=== PATIENT | male | born 1955 | race Caucasian/White ===

== ENCOUNTER 2021-02-22 10:23 | Inpatient (IN) | payer OTHER ==
[2021-02-22 11:12] VITALS: BMI 28.5
[2021-02-22] MEDS ORDERED: LACTATED RINGERS SOLUTION 1000 ML INFUS.BAG IV ONE (12:52)
[2021-02-22] MEDS ORDERED: ACETAMINOPHEN 325 MG TABLET (FP) PO ONE (12:52)
[2021-02-22] MEDS ORDERED: guaiFENesin 200 MG/10 ML 10 ML UNIT-DOSE CUPS PO ONE (13:04)
[2021-02-22] MEDS ORDERED: ACETAMINOPHEN 325 MG TABLET (FP) ONE (13:14)
[2021-02-22] MEDS ORDERED: guaiFENesin/D-METHORPHAN HB 10 ML UNIT-DOSE CUPS ONE (13:14)
[2021-02-22 13:24] LABS: HEMATOCRIT 42.8 % (35.4-49); HEMOGLOBIN 14.7 GM/dL (11.7-16.9); MCH 32.8 pg (25.7-33.7); MCHC 34.3 g/dl (32.0-35.9); MEAN CELL VOLUME 95.6 fl (80-96); MEAN PLT VOLUME 8.9 fl (7.5-11.1); PLATELET COUNT 377 10^3/uL (134-434); RBC 4.48 M/mm3 (4.00-5.60); RDW 13.8 % (11.9-15.9); WHITE BLOOD COUNT 20.2 K/mm3 (4.0-10.0)
[2021-02-22 13:31] LABS: INR 1.41 (0.83-1.09); PROTHROMBIN TIME (PATIENT) 16.9 SEC (9.7-13.0)
[2021-02-22 13:34] LABS: ACTIVATED PTT 29.7 SECONDS (25.2-36.5)
[2021-02-22 13:49] LABS: CHLORIDE 95 mmol/L (98-107); SODIUM 133 mmol/L (136-145)
[2021-02-22 13:51] LABS: ALBUMIN 2.1 g/dl (3.4-5.0); ANION GAP 20 MMOL/L (8-16); BLOOD UREA NITROGEN 37.7 mg/dL (7-18); CALCIUM 9.4 mg/dL (8.5-10.1); CO2 18 mmol/L (21-32)
[2021-02-22 13:53] LABS: SGOT/AST 40 U/L (15-37); SGPT/ALT 65 U/L (13-61)
[2021-02-22 13:55] LABS: CREATININE 1.4 mg/dL (0.55-1.3)
[2021-02-22 13:56] LABS: TOT PROT 6.6 g/dl (6.4-8.2)
[2021-02-22 13:57] LABS: ALK PHOS 270 U/L (45-117)
[2021-02-22 13:59] LABS: BILIRUBIN,TOTAL 0.8 mg/dL (0.2-1); GLUCOSE,RANDOM 403 mg/dL (74-106); N-TERMINAL BNP 305.8 pg/ml (5-125)
[2021-02-22 14:26] LABS: ANISOCYTOSIS 0; HELMET CELLS 0; HOWELL-JOLLY BODIES 0; MACROCYTOSIS 0; OVALOCYTE 0; PLATELET ESTIMATE NORMAL; ROULEAU 0; SICKELED CELLS 0; TARGET CELLS 0; TEAR DROP CELLS 0; TOXIC GRANULATION 0
[2021-02-22] MEDS ORDERED: POTASSIUM CHLORIDE TABS 20 MEQ TABLET.ER (FP) PO ONE ×2 (14:31→15:13)
[2021-02-22] MEDS ORDERED: AZITHROMYCIN IVPB 500 MG in DEXTROSE 5%-WATER - 250 ML IVPB ONE (14:58)
[2021-02-22] MEDS ORDERED: CEFTRIAXONE 1,000 MG in DEXTROSE 5%-WATER - 50 ML IVPB ONE (14:58)
[2021-02-22] MEDS ORDERED: INSULIN REGULAR HUMAN 100 UNITS/ML *VIAL IVPUSH ONE (15:01)
[2021-02-22] MEDS ORDERED: SODIUM CHLORIDE 0.9% 500 ML INFUS.BAG IV ONE (15:01)
[2021-02-22] MEDS ORDERED: AZITHROMYCIN IVPB ONE (15:02)
[2021-02-22] MEDS ORDERED: CEFTRIAXONE 1 GM in SODIUM CHLORIDE 50 ML IVPB ONE (15:02)
[2021-02-22] MEDS ORDERED: SODIUM CHLORIDE IVPB ONE (15:02)
[2021-02-22] MEDS ORDERED: AZITHROMYCIN IVPB 500 MG in SODIUM CHLORIDE 250 ML IVPB ONE (15:03)
[2021-02-22] MEDS ORDERED: CEFTRIAXONE 1 GM/50 ML BAG ONE (15:13)
[2021-02-22] MEDS ORDERED: AZITHROMYCIN IVPB 500 MG/250 ML BAG IVPB ONE (15:13)
[2021-02-22] MEDS ORDERED: SODIUM CHLORIDE 0.9%/KCL 20 MEQ/1,000 ML INFUS.BAG IV SCH (15:15)
[2021-02-22] MEDS ORDERED: INSULIN REGULAR HUMAN 100 UNITS/ML *VIAL ONE (15:15)
[2021-02-22] MEDS ORDERED: INSULIN REGULAR 100 UNITS in SODIUM CHLORIDE 99 ML IVPB SCH (15:30)
[2021-02-22 16:05] LABS: VENOUS BASE EXCESS -6.4 mmol/L (-2-2); VENOUS O2 SATURATION 80.7 % (70-80); VENOUS PCO2 34.1 mmHg (38-52); VENOUS PH 7.348 (7.310-7.410)
[2021-02-22 16:20] LABS: CHLORIDE 93 mmol/L (98-107); SODIUM 130 mmol/L (136-145)
[2021-02-22 16:22] LABS: ANION GAP 17 MMOL/L (8-16); BLOOD UREA NITROGEN 35.8 mg/dL (7-18); CO2 20 mmol/L (21-32)
[2021-02-22 16:23] LABS: EPI CELLS 28 /uL (0-25.1); HYALINE CASTS 14 /uL (0-3.1); URINE APPEARANCE CLEAR; URINE BACTERIA 6 /uL (0-1359); URINE BILIRUBIN 1+ (NEGATIVE); URINE COLOR DK YELLOW; URINE GLUCOSE (UA) 3+ (NEGATIVE); URINE KETONE 3+ (NEGATIVE); URINE LEUK ESTERASE NEGATIVE (NEGATIVE); URINE NITRITE NEGATIVE (NEGATIVE); URINE PROTEIN 2+ (NEGATIVE); URINE RBC 24 /uL (0-23.9); URINE WBC 29 /uL (0-25.8)
[2021-02-22 16:25] LABS: CREATININE 1.4 mg/dL (0.55-1.3)
[2021-02-22 16:28] LABS: GLUCOSE,RANDOM 405 mg/dL (74-106); LACTIC ACID 2.7 mmol/L (0.4-2.0)
[2021-02-22 20:43] LABS: BLOOD UREA NITROGEN 34.9 mg/dL (7-18); CALCIUM 9.1 mg/dL (8.5-10.1)
[2021-02-22 20:46] LABS: CREATININE 1.1 mg/dL (0.55-1.3)
[2021-02-22 20:53] LABS: LACTIC ACID 2.6 mmol/L (0.4-2.0)
[2021-02-22] MEDS ORDERED: CHLORHEXIDINE GLUCONATE 4% CLEANSER FOR DECOLONIZATION TP SCH (22:00)
[2021-02-22] MEDS ORDERED: MUPIROCIN 2% TOPICAL OINTMENT FOR DECOLONIZATION NS SCH (22:00)
[2021-02-22 23:43] LABS: CALCIUM 8.5 mg/dL (8.5-10.1)
[2021-02-22 23:44] LABS: BLOOD UREA NITROGEN 31.6 mg/dL (7-18)
[2021-02-22 23:47] LABS: CREATININE 0.9 mg/dL (0.55-1.3)
[2021-02-23] MEDS ORDERED: INSULIN (LEVEMIR) 100 UNITS/ML UNITS SQ ONE (00:10)
[2021-02-23] MEDS ORDERED: D5-1/2NS+20 MEQ KCL - 20 MEQ/1,000 ML INFUS.BAG IV SCH ×2 (00:15→00:19)
[2021-02-23 00:31] LABS: LACTIC ACID 2.3 mmol/L (0.4-2.0)
[2021-02-23] MEDS: HEPARIN NA (PORCINE) 5,000 UNITS/ML 1ML VIAL SQ SCH ×2 (00:32→06:05)
[2021-02-23 00:38] LABS: ARTERIAL BLD GAS O2 SATURATION 94.1 % (95-98); ARTERIAL BLOOD GAS BASE EXCESS 0.4 mmol/L (-2-2); ARTERIAL BLOOD GAS PO2 67.1 mmHg (80-100); ARTERIAL BLOOD GAS pH 7.441 (7.350-7.450)
[2021-02-23 01:32] VITALS: TEMP 99.7
[2021-02-23 01:33] VITALS: BP 149/73; PULSE 110
[2021-02-23] MEDS ORDERED: VANCOMYCIN/WATER 1,250 MG/250 ML BAG IVPB ONE (02:15)
[2021-02-23] MEDS ORDERED: VANCOMYCIN/WATER BAGS 1,250 MG/250 ML BAG IVPB ONE (02:30)
[2021-02-23] MEDS ORDERED: INSULIN SLIDING SCALE (NOVOLOG) 1 VIAL SQ SCH (07:00)
[2021-02-23] MEDS ORDERED: AZITHROMYCIN IVPB 500 MG/250 ML BAG IVPB SCH (10:00)
[2021-02-23] MEDS ORDERED: CEFTRIAXONE 1 GM in DEXTROSE 5%-WATER - 50 ML IVPB SCH (10:00)
== END 2021-02-23 07:00 | disposition left against medical advice (07) | DRG 871 ==
LOC: JER 10:23 → JERBED 15:02 → JICU 21:10
PROVIDERS: ADMIT Family Medicine; ATTEND Family Medicine
DX: A41.89 Other specified sepsis (principal); J18.9 Pneumonia, unspecified organism; E11.10 Type 2 diabetes mellitus with ketoacidosis without coma; J96.01 Acute respiratory failure with hypoxia; J90 Pleural effusion, not elsewhere classified; N17.9 Acute kidney failure, unspecified; I10 Essential (primary) hypertension; E78.5 Hyperlipidemia, unspecified; E11.65 Type 2 diabetes mellitus with hyperglycemia; R00.0 Tachycardia, unspecified; Z91.14 Patient's other noncompliance with medication regimen
CPT/HCPCS: 36415; 36600; 71046-TC-FY; 71275-TC; 80048; 80053; 81003; 82010; 82550; 82803; 82962; 83605; 83880; 84484; 85025; 85379; 85610; 85730; 87040; 87086; 87186; 87899; 93005; 93010; 99285-25; C9803; J1644; U0003; U0005

== ENCOUNTER 2021-02-28 12:32 | Inpatient (IN) | payer OTHER ==
[2021-02-28 12:41] VITALS: BMI 27.1
[2021-02-28] MEDS ORDERED: SODIUM CHLORIDE 0.9% 1000 ML INFUS.BAG IV ONE ×2 (12:44→14:06)
[2021-02-28 13:33] LABS: ACTIVATED PTT 24.7 SECONDS (25.2-36.5)
[2021-02-28 13:36] LABS: ALBUMIN 1.8 g/dl (3.4-5.0); BILIRUBIN,TOTAL 1.6 mg/dl (0.2-1); CALCIUM 8.2 mg/dl (8.5-10); CREATININE 1.1 mg/dl (0.55-1.3); TOT PROT 6.2 g/dl (6.4-8.2)
[2021-02-28 13:42] LABS: INR 1.44 (0.82-1.09); PROTHROMBIN TIME (PATIENT) 15.7 SEC (10.2-13.0)
[2021-02-28] MEDS ORDERED: VANCOMYCIN 1 GM in D5W (PRE-DOCKED) 1,000 MG/250 ML IVPB ONE (13:45)
[2021-02-28] MEDS ORDERED: PIPERACILLIN/TAZOB 3.375 GM 3.375 GM in DEXTROSE 5%-WATER - 50 ML IVPB ONE (13:49)
[2021-02-28] MEDS ORDERED: PIPERACILLIN/TAZOBACTAM 3.375 GM VIAL IVPB ONE ×2 (13:54→21:23)
[2021-02-28] MEDS ORDERED: VANCOMYCIN 1,000 MG VIAL (RESTRICTED TO ID ONLY) ONE (13:54)
[2021-02-28] MEDS ORDERED: INSULIN REGULAR HUMAN 100 UNITS/ML *VIAL IVPUSH ONE (14:02)
[2021-02-28 14:04] LABS: HEMATOCRIT 43.5 % (35.4-49); HEMOGLOBIN 14.3 GM/dl (11.7-16.9); MCHC 32.9 g/dl (32.0-35.9); MEAN CELL VOLUME 97.4 fl (80-96); MEAN PLT VOLUME 8.5 fl (7.5-11.1); PLATELET COUNT 663 10^3/uL (134-434); RBC 4.47 M/mm3 (4.00-5.60); RDW 13.7 % (11.9-15.9)
[2021-02-28 14:06] LABS: WHITE BLOOD COUNT 23.6 K/mm3 (4.0-10.8)
[2021-02-28] MEDS ORDERED: INSULIN REGULAR HUMAN 100 UNITS/ML *VIAL ONE (14:08)
[2021-02-28] MEDS ORDERED: dilTIAZem HCL 50 MG/10 ML - 10 ML VIAL IVPUSH ONE ×3 (14:18→19:53)
[2021-02-28] MEDS ORDERED: dilTIAZem HCL 125 MG/25 ML - 25 ML VIAL ONE ×2 (14:18→15:02)
[2021-02-28 14:54] LABS: VENOUS BASE EXCESS -17.9 mmol/L (-2-2); VENOUS O2 SATURATION 75.3 % (70-80); VENOUS PCO2 24.9 mmHg (38-52)
[2021-02-28 14:58] LABS: VENOUS PH 7.168 (7.310-7.410)
[2021-02-28 15:05] LABS: PLATELET ESTIMATE INCREASED
[2021-02-28 15:14] LABS: EPITHELIAL CELLS FEW /hpf; URINE MUCUS 1+
[2021-02-28 15:35] LABS: LACTIC ACID 3.6 mmol/L (0.4-2.0)
[2021-02-28] MEDS ORDERED: SODIUM CHLORIDE 0.9% 500 ML INFUS.BAG IV ONE (15:48)
[2021-02-28 15:53] LABS: CREATININE 1.1 mg/dl (0.55-1.3)
[2021-02-28] MEDS ORDERED: DEXTROSE 50%-WATER - 25 GM/50 ML VIAL IVPUSH PRN (16:53)
[2021-02-28] MEDS ORDERED: INSULIN REGULAR 100 UNITS in SODIUM CHLORIDE 99 ML IVPB SCH (17:00)
[2021-02-28] MEDS ORDERED: dilTIAZem HCL 50 MG/10 ML - 10 ML VIAL IVPUSH PRN ×3 (17:53→19:59)
[2021-02-28] MEDS ORDERED: PIPERACILLIN/TAZOB 3.375 GM 3.375 GM in DEXTROSE 5%-WATER - 50 ML IVPB SCH (18:00)
[2021-02-28 18:10] LABS: ARTERIAL BLD GAS O2 SATURATION 96.1 % (95-98); ARTERIAL BLOOD GAS BASE EXCESS -17.1 mmol/L (-2-2); ARTERIAL BLOOD GAS PO2 93.8 mmHg (80-100); ARTERIAL BLOOD GAS pH 7.233 (7.350-7.450)
[2021-02-28 18:11] LABS: ALLENS TEST POSITIVE
[2021-02-28 19:45] LABS: CALCIUM 7.7 mg/dL (8.5-10.1)
[2021-02-28 19:46] LABS: BLOOD UREA NITROGEN 22.5 mg/dL (7-18)
[2021-02-28 19:49] LABS: CREATININE 0.9 mg/dL (0.55-1.3)
[2021-02-28] MEDS ORDERED: D5-1/2NS+20 MEQ KCL - 20 MEQ/1,000 ML INFUS.BAG IV SCH (20:45)
[2021-02-28] MEDS ORDERED: DEXTROSE 5%-0.45% SALINE 1,000 ML IV SCH (20:45)
[2021-02-28 21:11] LABS: LACTIC ACID 2.2 mmol/L (0.4-2.0)
[2021-02-28] MEDS ORDERED: DEXTROSE 5%-WATER - 50 ML IVPB ONE (21:24)
[2021-02-28] MEDS: PIPERACILLIN/TAZOB 3.375 GM 3.375 GM in DEXTROSE 5%-WATER - 50 ML IVPB SCH (21:27)
[2021-02-28] MEDS: HEPARIN NA (PORCINE) 5,000 UNITS/ML 1ML VIAL SQ SCH (21:27)
[2021-02-28] MEDS: CHLORHEXIDINE GLUCONATE 4% CLEANSER FOR DECOLONIZATION TP SCH (21:27)
[2021-02-28 22:32] LABS: CALCIUM 7.6 mg/dL (8.5-10.1)
[2021-02-28 22:33] LABS: BLOOD UREA NITROGEN 19.6 mg/dL (7-18)
[2021-02-28 22:36] LABS: CREATININE 0.6 mg/dL (0.55-1.3)
[2021-02-28] MEDS: DILTIAZEM INJECTION 125 MG in SODIUM CHLORIDE 100 ML IVPB SCH (22:53)
[2021-02-28] MEDS: MUPIROCIN 2% TOPICAL OINTMENT FOR DECOLONIZATION NS SCH (23:00)
[2021-03-01] MEDS: INSULIN (LEVEMIR) 100 UNITS/ML UNITS SQ SCH ×2 (00:14→06:19)
[2021-03-01] MEDS ORDERED: SODIUM CHLORIDE 1,000 ML IV SCH (00:15)
[2021-03-01] MEDS ORDERED: dilTIAZem HCL 50 MG/10 ML - 10 ML VIAL IVPUSH ONE ×3 (01:31→02:41)
[2021-03-01] MEDS ORDERED: PIPERACILLIN/TAZOBACTAM 3.375 GM VIAL IVPB ONE ×2 (01:47→09:49)
[2021-03-01] MEDS ORDERED: DEXTROSE 5%-WATER - 50 ML IVPB ONE ×2 (01:47→09:49)
[2021-03-01] MEDS: PIPERACILLIN/TAZOB 3.375 GM 3.375 GM in DEXTROSE 5%-WATER - 50 ML IVPB SCH ×2 (01:49→10:10)
[2021-03-01 02:53] LABS: CALCIUM 7.5 mg/dL (8.5-10.1)
[2021-03-01 02:54] LABS: BLOOD UREA NITROGEN 18.1 mg/dL (7-18)
[2021-03-01 02:57] LABS: CREATININE 0.6 mg/dL (0.55-1.3)
[2021-03-01] MEDS ORDERED: METOPROLOL TARTRATE 5 MG/5 ML VIAL IVPUSH ONE (03:30)
[2021-03-01] MEDS: METOPROLOL TARTRATE 25 MG TABLET (FP) PO SCH ×3 (03:45→22:18)
[2021-03-01] MEDS: HEPARIN NA (PORCINE) 5,000 UNITS/ML 1ML VIAL SQ SCH (06:09)
[2021-03-01] MEDS ORDERED: INSULIN SLIDING SCALE (NOVOLOG) 1 VIAL SQ SCH ×2 (07:00)
[2021-03-01 07:49] LABS: HEMATOCRIT 36.2 % (35.4-49); HEMOGLOBIN 12.2 GM/dL (11.7-16.9); MCH 32.2 pg (25.7-33.7); MCHC 33.8 g/dl (32.0-35.9); MEAN CELL VOLUME 95.2 fl (80-96); MEAN PLT VOLUME 8.3 fl (7.5-11.1); PLATELET COUNT 608 10^3/uL (134-434); RDW 14.2 % (11.9-15.9)
[2021-03-01 08:12] LABS: CALCIUM 7.4 mg/dL (8.5-10.1)
[2021-03-01 08:13] LABS: BLOOD UREA NITROGEN 19.2 mg/dL (7-18); MAGNESIUM 1.7 mg/dL (1.8-2.4)
[2021-03-01 08:15] LABS: CREATININE 0.7 mg/dL (0.55-1.3); PHOSPHOROUS 2.3 mg/dL (2.5-4.9)
[2021-03-01 08:17] LABS: BILIRUBIN,TOTAL 0.6 mg/dL (0.2-1); TOT PROT 5.3 g/dl (6.4-8.2)
[2021-03-01 08:24] LABS: ALBUMIN 1.3 g/dl (3.4-5.0)
[2021-03-01] MEDS ORDERED: VANCOMYCIN/WATER 1,250 MG/250 ML BAG IVPB ONE (10:00)
[2021-03-01] MEDS: MUPIROCIN 2% TOPICAL OINTMENT FOR DECOLONIZATION NS SCH ×2 (10:09→22:18)
[2021-03-01] MEDS: PANTOPRAZOLE SODIUM 40 MG VIAL IVPUSH SCH (10:10)
[2021-03-01 10:14] LABS: ANISOCYTOSIS 1+; MACROCYTOSIS 0; PLATELET ESTIMATE INCREASED
[2021-03-01] MEDS ORDERED: D5-NS + 40 MEQ KCL - 40 MEQ/1,000 ML INFUS.BAG IV SCH ×2 (10:15→17:57)
[2021-03-01] MEDS ORDERED: INSULIN REGULAR 100 UNITS in SODIUM CHLORIDE 99 ML IVPB SCH (10:30)
[2021-03-01] MEDS ORDERED: LIDOCAINE HCL 1%, 10 MG/ML (20ML VIAL) ONE (11:11)
[2021-03-01] MEDS ORDERED: LIDOCAINE HCL 1%, 10 MG/ML (50 mL VIAL) SQ ONE (12:00)
[2021-03-01] MEDS ORDERED: MORPHINE SULFATE 2 MG/ML VIAL IVPUSH ONE (12:23)
[2021-03-01] MEDS ORDERED: MIDAZOLAM HCL 2 MG/2 ML SINGLE DOSE VIAL IVPUSH ONE (12:23)
[2021-03-01] MEDS ORDERED: MORPHINE SULFATE 2 MG/ML VIAL ONE (12:26)
[2021-03-01] MEDS ORDERED: MAGNESIUM SULF 50% (8.12 MEQ/2 ML-1 GM VIAL) IVPB ONE (14:15)
[2021-03-01 14:19] LABS: BF WBC & OTHER NUCLEATED CELLS 85792 /mm3
[2021-03-01 14:48] LABS: BODY FLUID MONOCYTE 10 %
[2021-03-01] MEDS ORDERED: SODIUM PHOSPHATE - 30 MM in SODIUM CHLORIDE 250 ML IVPB ONE (15:15)
[2021-03-01] MEDS ORDERED: PT OWN MED DRAWER 7, Y5N ONE (15:27)
[2021-03-01] MEDS ORDERED: DEXTROSE 5%-WATER 100 ML IVPB ONE (16:07)
[2021-03-01] MEDS: CEFTRIAXONE 2 GM in DEXTROSE 5%-WATER 2 GM/100 ML BAG IVPB SCH (16:11)
[2021-03-01 16:36] LABS: CALCIUM 7.8 mg/dL (8.5-10.1)
[2021-03-01 16:37] LABS: ALBUMIN 1.3 g/dl (3.4-5.0)
[2021-03-01 16:40] LABS: CREATININE 0.6 mg/dL (0.55-1.3)
[2021-03-01 16:42] LABS: BILIRUBIN,TOTAL 0.6 mg/dL (0.2-1); TOT PROT 5.2 g/dl (6.4-8.2)
[2021-03-01] MEDS ORDERED: PIPERACILLIN/TAZOB 3.375 GM 3.375 GM in DEXTROSE 5%-WATER - 50 ML IVPB SCH (18:00)
[2021-03-01 18:10] LABS: CALCIUM 7.6 mg/dL (8.5-10.1)
[2021-03-01 18:14] LABS: CREATININE 0.7 mg/dL (0.55-1.3)
[2021-03-01 21:21] LABS: CALCIUM 7.4 mg/dL (8.5-10.1)
[2021-03-01 21:25] LABS: CREATININE 0.7 mg/dL (0.55-1.3)
[2021-03-01] MEDS: DILTIAZEM INJECTION 125 MG in SODIUM CHLORIDE 100 ML IVPB SCH (21:39)
[2021-03-01] MEDS ORDERED: ENOXAPARIN NA (PORCINE) 100 MG/1 ML DISP.SYRIN SQ SCH (22:00)
[2021-03-01] MEDS: CHLORHEXIDINE GLUCONATE 4% CLEANSER FOR DECOLONIZATION TP SCH (22:18)
[2021-03-02] MEDS ORDERED: DEXTROSE 5%-WATER 100 ML IVPB ONE ×2 (04:15→15:05)
[2021-03-02 04:16] LABS: CALCIUM 7.2 mg/dL (8.5-10.1)
[2021-03-02 04:17] LABS: BLOOD UREA NITROGEN 12.8 mg/dL (7-18)
[2021-03-02] MEDS: CEFTRIAXONE 2 GM in DEXTROSE 5%-WATER 2 GM/100 ML BAG IVPB SCH ×2 (04:17→15:15)
[2021-03-02 04:20] LABS: CREATININE 0.7 mg/dL (0.55-1.3)
[2021-03-02] MEDS ORDERED: SODIUM CHLORIDE 1,000 ML IV SCH (04:30)
[2021-03-02] MEDS ORDERED: INSULIN SLIDING SCALE (NOVOLOG) 1 VIAL SQ SCH (07:00)
[2021-03-02] MEDS ORDERED: INSULIN (LEVEMIR) 100 UNITS/ML UNITS SQ SCH (07:00)
[2021-03-02 07:47] LABS: HEMATOCRIT 33.7 % (35.4-49); HEMOGLOBIN 11.6 GM/dL (11.7-16.9); MCH 32.9 pg (25.7-33.7); MCHC 34.4 g/dl (32.0-35.9); MEAN CELL VOLUME 95.7 fl (80-96); MEAN PLT VOLUME 8.3 fl (7.5-11.1); PLATELET COUNT 623 10^3/uL (134-434); RBC 3.52 M/mm3 (4.00-5.60); WHITE BLOOD COUNT 14.2 K/mm3 (4.0-10.0)
[2021-03-02 08:02] LABS: ALBUMIN 1.2 g/dl (3.4-5.0); CALCIUM 7.1 mg/dL (8.5-10.1)
[2021-03-02 08:03] LABS: BLOOD UREA NITROGEN 11.6 mg/dL (7-18)
[2021-03-02 08:06] LABS: CREATININE 0.7 mg/dL (0.55-1.3); PHOSPHOROUS 2.1 mg/dL (2.5-4.9)
[2021-03-02 08:07] LABS: BILIRUBIN,TOTAL 0.3 mg/dL (0.2-1); TOT PROT 5.2 g/dl (6.4-8.2)
[2021-03-02] MEDS: INSULIN SLIDING SCALE (NOVOLOG) 1 VIAL SQ SCH ×4 (08:13→21:16)
[2021-03-02 09:45] LABS: ANISOCYTOSIS 1+; MACROCYTOSIS 0; OVALOCYTE 1+; PLATELET ESTIMATE INCREASED; SICKELED CELLS 1+; TOXIC GRANULATION 1+
[2021-03-02] MEDS ORDERED: PT OWN MED DRAWER 7, Y5N ONE (10:00)
[2021-03-02] MEDS: MUPIROCIN 2% TOPICAL OINTMENT FOR DECOLONIZATION NS SCH (10:14)
[2021-03-02] MEDS: PANTOPRAZOLE SODIUM 40 MG VIAL IVPUSH SCH (10:15)
[2021-03-02] MEDS: METOPROLOL TARTRATE 25 MG TABLET (FP) PO SCH ×2 (10:16→21:14)
[2021-03-02] MEDS: HEPARIN NA (PORCINE) 5,000 UNITS/ML 1ML VIAL SQ SCH ×2 (14:55→21:13)
[2021-03-02] MEDS ORDERED: DEXTROSE 50%-WATER - 25 GM/50 ML VIAL IVPUSH PRN (19:12)
[2021-03-02] MEDS ORDERED: DILTIAZEM INJECTION 125 MG in SODIUM CHLORIDE 100 ML IVPB SCH (19:12)
[2021-03-02] MEDS ORDERED: dilTIAZem HCL 50 MG/10 ML - 10 ML VIAL IVPUSH PRN (19:12)
[2021-03-02] MEDS: INSULIN (LEVEMIR) 100 UNITS/ML UNITS SQ SCH (21:15)
[2021-03-02] MEDS ORDERED: CHLORHEXIDINE GLUCONATE 4% CLEANSER FOR DECOLONIZATION TP SCH (22:00)
[2021-03-02] MEDS ORDERED: MUPIROCIN 2% TOPICAL OINTMENT FOR DECOLONIZATION NS SCH (22:00)
[2021-03-03] MEDS ORDERED: DEXTROSE 5%-WATER 100 ML IVPB ONE ×2 (04:16→15:37)
[2021-03-03] MEDS: CEFTRIAXONE 2 GM in DEXTROSE 5%-WATER 2 GM/100 ML BAG IVPB SCH ×2 (05:05→15:38)
[2021-03-03] MEDS: HEPARIN NA (PORCINE) 5,000 UNITS/ML 1ML VIAL SQ SCH ×3 (05:09→21:13)
[2021-03-03] MEDS: INSULIN SLIDING SCALE (NOVOLOG) 1 VIAL SQ SCH ×4 (06:06→21:17)
[2021-03-03] MEDS: INSULIN (LEVEMIR) 100 UNITS/ML UNITS SQ SCH ×2 (06:07→21:18)
[2021-03-03] MEDS: PANTOPRAZOLE SODIUM 40 MG VIAL IVPUSH SCH (10:27)
[2021-03-03] MEDS: METOPROLOL TARTRATE 25 MG TABLET (FP) PO SCH ×2 (10:27→21:14)
[2021-03-03] MEDS: guaiFENesin/CODEINE 10 ML UNIT-DOSE CUPS PO PRN ×2 (10:44→21:16)
[2021-03-03] MEDS: ONDANSETRON 4 MG/2 ML VIAL IVPUSH PRN (14:13)
[2021-03-03] MEDS: MELATONIN 1 MG TABLET PO PRN (21:13)
[2021-03-03] MEDS: dilTIAZem HCL 30 MG TABLET PO SCH (21:14)
[2021-03-04] MEDS ORDERED: KETOROLAC TROMETHAMINE 30 MG/1 ML VIAL IVPUSH ONE (00:02)
[2021-03-04] MEDS ORDERED: DEXTROSE 5%-WATER 100 ML IVPB ONE ×2 (05:00→15:05)
[2021-03-04] MEDS: CEFTRIAXONE 2 GM in DEXTROSE 5%-WATER 2 GM/100 ML BAG IVPB SCH ×2 (05:02→15:15)
[2021-03-04] MEDS: guaiFENesin/CODEINE 10 ML UNIT-DOSE CUPS PO PRN (05:02)
[2021-03-04] MEDS: HEPARIN NA (PORCINE) 5,000 UNITS/ML 1ML VIAL SQ SCH ×3 (05:02→20:59)
[2021-03-04] MEDS: dilTIAZem HCL 30 MG TABLET PO SCH ×3 (05:04→21:00)
[2021-03-04] MEDS: INSULIN SLIDING SCALE (NOVOLOG) 1 VIAL SQ SCH ×4 (06:10→21:05)
[2021-03-04] MEDS: INSULIN (LEVEMIR) 100 UNITS/ML UNITS SQ SCH ×2 (06:10→21:06)
[2021-03-04 07:30] LABS: BASO % 0.4 % (0-2.0); EOS % 0.2 % (0-4.5); HEMATOCRIT 30.7 % (35.4-49); HEMOGLOBIN 10.7 GM/dL (11.7-16.9); MCH 33.1 pg (25.7-33.7); MEAN CELL VOLUME 94.6 fl (80-96); MEAN PLT VOLUME 8.2 fl (7.5-11.1); MONO % 10.3 % (3.8-10.2); NEUT % 76.1 % (42.8-82.8); PLATELET COUNT 623 10^3/uL (134-434); RBC 3.24 M/mm3 (4.00-5.60); RDW 13.7 % (11.9-15.9); WHITE BLOOD COUNT 9.1 K/mm3 (4.0-10.0)
[2021-03-04 07:53] LABS: ALBUMIN 1.2 g/dl (3.4-5.0); BLOOD UREA NITROGEN 9.3 mg/dL (7-18); CALCIUM 7.7 mg/dL (8.5-10.1)
[2021-03-04 07:56] LABS: CREATININE 0.7 mg/dL (0.55-1.3)
[2021-03-04 07:57] LABS: BILIRUBIN,TOTAL 0.5 mg/dL (0.2-1)
[2021-03-04 07:58] LABS: TOT PROT 5.1 g/dl (6.4-8.2)
[2021-03-04] MEDS: METOPROLOL TARTRATE 25 MG TABLET (FP) PO SCH ×2 (09:23→21:00)
[2021-03-04] MEDS: PANTOPRAZOLE SODIUM 40 MG VIAL IVPUSH SCH (09:23)
[2021-03-04] MEDS ORDERED: POTASSIUM CHLORIDE TABS 20 MEQ TABLET.ER (FP) PO ONE (10:23)
[2021-03-04] MEDS ORDERED: PT OWN MED DRAWER 7, Y5N ONE (11:25)
[2021-03-04] MEDS: ONDANSETRON 4 MG/2 ML VIAL IVPUSH PRN ×2 (15:23→20:59)
[2021-03-04] MEDS: MELATONIN 1 MG TABLET PO PRN (21:00)
[2021-03-05] MEDS ORDERED: DEXTROSE 5%-WATER 100 ML IVPB ONE ×2 (04:52→17:40)
[2021-03-05] MEDS: CEFTRIAXONE 2 GM in DEXTROSE 5%-WATER 2 GM/100 ML BAG IVPB SCH ×2 (04:54→17:42)
[2021-03-05] MEDS: dilTIAZem HCL 30 MG TABLET PO SCH ×3 (05:19→21:24)
[2021-03-05] MEDS: guaiFENesin/CODEINE 5 ML UNIT-DOSE CUPS PO PRN ×2 (05:19→17:50)
[2021-03-05] MEDS: HEPARIN NA (PORCINE) 5,000 UNITS/ML 1ML VIAL SQ SCH ×3 (05:19→21:24)
[2021-03-05] MEDS: INSULIN SLIDING SCALE (NOVOLOG) 1 VIAL SQ SCH ×4 (06:24→21:23)
[2021-03-05] MEDS: INSULIN (LEVEMIR) 100 UNITS/ML UNITS SQ SCH ×2 (06:24→21:24)
[2021-03-05] MEDS: METOPROLOL TARTRATE 25 MG TABLET (FP) PO SCH ×2 (10:15→21:24)
[2021-03-05] MEDS: PANTOPRAZOLE SODIUM 40 MG VIAL IVPUSH SCH (10:15)
[2021-03-05] MEDS: MELATONIN 1 MG TABLET PO PRN (21:24)
[2021-03-06] MEDS ORDERED: DEXTROSE 5%-WATER 100 ML IVPB ONE ×2 (03:09→08:35)
[2021-03-06] MEDS: CEFTRIAXONE 2 GM in DEXTROSE 5%-WATER 2 GM/100 ML BAG IVPB SCH ×2 (03:11→16:08)
[2021-03-06] MEDS: guaiFENesin/CODEINE 5 ML UNIT-DOSE CUPS PO PRN ×3 (03:11→21:07)
[2021-03-06] MEDS: dilTIAZem HCL 30 MG TABLET PO SCH ×3 (06:16→21:06)
[2021-03-06] MEDS: HEPARIN NA (PORCINE) 5,000 UNITS/ML 1ML VIAL SQ SCH ×3 (06:16→21:24)
[2021-03-06] MEDS: INSULIN (LEVEMIR) 100 UNITS/ML UNITS SQ SCH ×2 (06:17→21:11)
[2021-03-06] MEDS: INSULIN SLIDING SCALE (NOVOLOG) 1 VIAL SQ SCH ×4 (06:19→21:10)
[2021-03-06 07:27] LABS: BASO % 0.9 % (0-2.0); EOS % 0.3 % (0-4.5); HEMATOCRIT 31.4 % (35.4-49); HEMOGLOBIN 11.2 GM/dL (11.7-16.9); LYMPH % 13.7 % (8-40); MCH 33.4 pg (25.7-33.7); MCHC 35.6 g/dl (32.0-35.9); MEAN CELL VOLUME 93.8 fl (80-96); MEAN PLT VOLUME 7.7 fl (7.5-11.1); MONO % 12.9 % (3.8-10.2); NEUT % 72.2 % (42.8-82.8); PLATELET COUNT 652 10^3/uL (134-434); RBC 3.34 M/mm3 (4.00-5.60); RDW 13.5 % (11.9-15.9)
[2021-03-06 07:55] LABS: BLOOD UREA NITROGEN 7.6 mg/dL (7-18); CALCIUM 7.9 mg/dL (8.5-10.1)
[2021-03-06 07:58] LABS: CREATININE 0.7 mg/dL (0.55-1.3)
[2021-03-06] MEDS: METOPROLOL TARTRATE 25 MG TABLET (FP) PO SCH ×2 (09:13→21:06)
[2021-03-06] MEDS: PANTOPRAZOLE SODIUM 40 MG VIAL IVPUSH SCH (09:13)
[2021-03-06] MEDS: MELATONIN 1 MG TABLET PO PRN (21:06)
[2021-03-07] MEDS: CEFTRIAXONE 2 GM in DEXTROSE 5%-WATER 2 GM/100 ML BAG IVPB SCH ×2 (04:50→16:46)
[2021-03-07] MEDS ORDERED: DEXTROSE 5%-WATER 100 ML IVPB ONE ×2 (04:51→16:41)
[2021-03-07] MEDS: dilTIAZem HCL 30 MG TABLET PO SCH ×3 (05:36→21:12)
[2021-03-07] MEDS: guaiFENesin/CODEINE 5 ML UNIT-DOSE CUPS PO PRN ×3 (05:36→21:11)
[2021-03-07] MEDS: HEPARIN NA (PORCINE) 5,000 UNITS/ML 1ML VIAL SQ SCH ×3 (05:37→21:22)
[2021-03-07] MEDS: INSULIN (LEVEMIR) 100 UNITS/ML UNITS SQ SCH ×2 (06:14→21:16)
[2021-03-07] MEDS: INSULIN SLIDING SCALE (NOVOLOG) 1 VIAL SQ SCH ×4 (06:14→21:18)
[2021-03-07] MEDS: METOPROLOL TARTRATE 25 MG TABLET (FP) PO SCH ×2 (11:05→21:13)
[2021-03-07] MEDS: POLYETHYLENE GLYCOL (HEALTHYLAX) 3350 17 GM PACKET PO SCH (11:05)
[2021-03-07] MEDS: PANTOPRAZOLE SODIUM 40 MG VIAL IVPUSH SCH (11:05)
[2021-03-07] MEDS: MELATONIN 1 MG TABLET PO PRN (21:12)
[2021-03-08] MEDS ORDERED: DEXTROSE 5%-WATER 100 ML IVPB ONE ×2 (04:18→15:34)
[2021-03-08] MEDS: CEFTRIAXONE 2 GM in DEXTROSE 5%-WATER 2 GM/100 ML BAG IVPB SCH ×2 (04:45→15:42)
[2021-03-08] MEDS: dilTIAZem HCL 30 MG TABLET PO SCH ×3 (05:48→21:18)
[2021-03-08] MEDS: HEPARIN NA (PORCINE) 5,000 UNITS/ML 1ML VIAL SQ SCH ×3 (05:48→21:18)
[2021-03-08] MEDS: INSULIN (LEVEMIR) 100 UNITS/ML UNITS SQ SCH ×2 (06:05→21:19)
[2021-03-08] MEDS: INSULIN SLIDING SCALE (NOVOLOG) 1 VIAL SQ SCH ×4 (06:05→21:18)
[2021-03-08 08:26] LABS: BILIRUBIN,DIRECT 0.1 mg/dL (0.0-0.2)
[2021-03-08 08:28] LABS: BILIRUBIN,TOTAL 0.2 mg/dL (0.2-1); TOT PROT 6.4 g/dl (6.4-8.2)
[2021-03-08 08:33] LABS: ALBUMIN 1.6 g/dl (3.4-5.0)
[2021-03-08] MEDS: PANTOPRAZOLE SODIUM 40 MG VIAL IVPUSH SCH (09:41)
[2021-03-08] MEDS: POLYETHYLENE GLYCOL (HEALTHYLAX) 3350 17 GM PACKET PO SCH (09:41)
[2021-03-08] MEDS: METOPROLOL TARTRATE 25 MG TABLET (FP) PO SCH ×2 (09:41→21:18)
[2021-03-08] MEDS: MELATONIN 1 MG TABLET PO PRN (21:18)
[2021-03-09] MEDS ORDERED: DEXTROSE 5%-WATER 100 ML IVPB ONE ×2 (03:47→16:48)
[2021-03-09] MEDS: CEFTRIAXONE 2 GM in DEXTROSE 5%-WATER 2 GM/100 ML BAG IVPB SCH ×2 (03:50→16:50)
[2021-03-09] MEDS: dilTIAZem HCL 30 MG TABLET PO SCH (05:43)
[2021-03-09] MEDS: HEPARIN NA (PORCINE) 5,000 UNITS/ML 1ML VIAL SQ SCH ×3 (05:43→21:50)
[2021-03-09] MEDS: INSULIN SLIDING SCALE (NOVOLOG) 1 VIAL SQ SCH ×4 (06:29→21:50)
[2021-03-09] MEDS: INSULIN (LEVEMIR) 100 UNITS/ML UNITS SQ SCH ×2 (06:29→21:52)
[2021-03-09 07:21] LABS: BASO % 1.1 % (0-2.0); EOS % 0.3 % (0-4.5); HEMATOCRIT 31.4 % (35.4-49); HEMOGLOBIN 11.2 GM/dL (11.7-16.9); LYMPH % 25.6 % (8-40); MCH 32.9 pg (25.7-33.7); MCHC 35.8 g/dl (32.0-35.9); MEAN CELL VOLUME 91.9 fl (80-96); MEAN PLT VOLUME 7.1 fl (7.5-11.1); MONO % 17.3 % (3.8-10.2); NEUT % 55.7 % (42.8-82.8); PLATELET COUNT 505 10^3/uL (134-434); RBC 3.42 M/mm3 (4.00-5.60); RDW 13.7 % (11.9-15.9); WHITE BLOOD COUNT 5.7 K/mm3 (4.0-10.0)
[2021-03-09 07:27] LABS: ALBUMIN 1.5 g/dl (3.4-5.0); BLOOD UREA NITROGEN 9.4 mg/dL (7-18); MAGNESIUM 2.1 mg/dL (1.8-2.4)
[2021-03-09 07:30] LABS: CREATININE 0.7 mg/dL (0.55-1.3)
[2021-03-09 07:31] LABS: BILIRUBIN,TOTAL 0.2 mg/dL (0.2-1); TOT PROT 6.2 g/dl (6.4-8.2)
[2021-03-09] MEDS: PANTOPRAZOLE SODIUM 40 MG VIAL IVPUSH SCH (09:46)
[2021-03-09] MEDS: POLYETHYLENE GLYCOL (HEALTHYLAX) 3350 17 GM PACKET PO SCH (09:46)
[2021-03-09] MEDS: FUROSEMIDE 40 MG/4 ML INJECTABLE VIAL IVPUSH SCH (11:42)
[2021-03-09] MEDS ORDERED: ALTEPLASE 2 MG VIAL CVP ONE (14:11)
[2021-03-09] MEDS ORDERED: ACETAMINOPHEN 325 MG TABLET (FP) PO ONE (23:30)
[2021-03-09] MEDS ORDERED: guaiFENesin 200 MG/10 ML 10 ML UNIT-DOSE CUPS PO ONE (23:45)
[2021-03-09] MEDS: MELATONIN 1 MG TABLET PO PRN (23:46)
[2021-03-10] MEDS ORDERED: DEXTROSE 5%-WATER 100 ML IVPB ONE ×2 (03:22→16:48)
[2021-03-10] MEDS: CEFTRIAXONE 2 GM in DEXTROSE 5%-WATER 2 GM/100 ML BAG IVPB SCH ×2 (04:35→16:50)
[2021-03-10] MEDS: INSULIN (LEVEMIR) 100 UNITS/ML UNITS SQ SCH (06:06)
[2021-03-10] MEDS: HEPARIN NA (PORCINE) 5,000 UNITS/ML 1ML VIAL SQ SCH ×3 (06:06→21:37)
[2021-03-10] MEDS: metFORMIN HCL 500 MG TABLET (FP) PO SCH ×2 (06:06→16:50)
[2021-03-10] MEDS: INSULIN SLIDING SCALE (NOVOLOG) 1 VIAL SQ SCH ×4 (06:07→21:37)
[2021-03-10 08:09] LABS: BASO % 0.8 % (0-2.0); EOS % 0.2 % (0-4.5); HEMATOCRIT 29.1 % (35.4-49); HEMOGLOBIN 10.2 GM/dL (11.7-16.9); LYMPH % 18.6 % (8-40); MCH 32.4 pg (25.7-33.7); MEAN CELL VOLUME 92.5 fl (80-96); NEUT % 66.4 % (42.8-82.8); PLATELET COUNT 408 10^3/uL (134-434); RBC 3.14 M/mm3 (4.00-5.60); RDW 13.6 % (11.9-15.9); WHITE BLOOD COUNT 6.6 K/mm3 (4.0-10.0)
[2021-03-10 08:15] LABS: ALBUMIN 1.4 g/dl (3.4-5.0); BLOOD UREA NITROGEN 9.1 mg/dL (7-18)
[2021-03-10 08:16] LABS: CALCIUM 7.4 mg/dL (8.5-10.1)
[2021-03-10 08:18] LABS: CREATININE 0.8 mg/dL (0.55-1.3)
[2021-03-10 08:19] LABS: BILIRUBIN,TOTAL 0.2 mg/dL (0.2-1); TOT PROT 5.8 g/dl (6.4-8.2)
[2021-03-10] MEDS: POLYETHYLENE GLYCOL (HEALTHYLAX) 3350 17 GM PACKET PO SCH (09:54)
[2021-03-10] MEDS: PANTOPRAZOLE SODIUM 40 MG VIAL IVPUSH SCH (09:55)
[2021-03-10] MEDS: FUROSEMIDE 40 MG/4 ML INJECTABLE VIAL IVPUSH SCH (09:55)
[2021-03-10] MEDS: ALTEPLASE 2 MG VIAL IX ONE ×2 (13:00→13:06)
[2021-03-10] MEDS: MELATONIN 1 MG TABLET PO PRN (21:38)
[2021-03-10] MEDS: guaiFENesin/D-METHORPHAN HB 10 ML UNIT-DOSE CUPS PO PRN (21:38)
[2021-03-10] MEDS: ACETAMINOPHEN 325 MG TABLET (FP) PO PRN (22:16)
[2021-03-11] MEDS ORDERED: DEXTROSE 5%-WATER 100 ML IVPB ONE ×2 (04:50→16:53)
[2021-03-11] MEDS: CEFTRIAXONE 2 GM in DEXTROSE 5%-WATER 2 GM/100 ML BAG IVPB SCH ×2 (04:52→17:01)
[2021-03-11] MEDS: INSULIN (LEVEMIR) 100 UNITS/ML UNITS SQ SCH (06:17)
[2021-03-11] MEDS: guaiFENesin/D-METHORPHAN HB 10 ML UNIT-DOSE CUPS PO PRN ×2 (06:17→21:16)
[2021-03-11] MEDS: HEPARIN NA (PORCINE) 5,000 UNITS/ML 1ML VIAL SQ SCH ×3 (06:17→21:16)
[2021-03-11] MEDS: INSULIN SLIDING SCALE (NOVOLOG) 1 VIAL SQ SCH ×4 (06:17→21:16)
[2021-03-11] MEDS: metFORMIN HCL 500 MG TABLET (FP) PO SCH ×2 (06:17→17:01)
[2021-03-11 07:43] LABS: BASO % 1.2 % (0-2.0); EOS % 0.5 % (0-4.5); HEMATOCRIT 31.1 % (35.4-49); LYMPH % 21.6 % (8-40); MCHC 35.3 g/dl (32.0-35.9); MEAN CELL VOLUME 93.4 fl (80-96); MEAN PLT VOLUME 7.3 fl (7.5-11.1); MONO % 13.2 % (3.8-10.2); NEUT % 63.5 % (42.8-82.8); PLATELET COUNT 363 10^3/uL (134-434); RBC 3.33 M/mm3 (4.00-5.60); RDW 13.4 % (11.9-15.9); WHITE BLOOD COUNT 4.6 K/mm3 (4.0-10.0)
[2021-03-11 07:51] LABS: ALBUMIN 1.7 g/dl (3.4-5.0); BLOOD UREA NITROGEN 10.2 mg/dL (7-18); CALCIUM 8.2 mg/dL (8.5-10.1); MAGNESIUM 1.9 mg/dL (1.8-2.4)
[2021-03-11 07:55] LABS: CREATININE 0.8 mg/dL (0.55-1.3)
[2021-03-11 07:56] LABS: BILIRUBIN,TOTAL 0.7 mg/dL (0.2-1); TOT PROT 6.5 g/dl (6.4-8.2)
[2021-03-11] MEDS: FUROSEMIDE 40 MG/4 ML INJECTABLE VIAL IVPUSH SCH (09:39)
[2021-03-11] MEDS: PANTOPRAZOLE SODIUM 40 MG VIAL IVPUSH SCH (09:39)
[2021-03-11] MEDS: POLYETHYLENE GLYCOL (HEALTHYLAX) 3350 17 GM PACKET PO SCH (09:39)
[2021-03-11] MEDS ORDERED: ALTEPLASE 2 MG VIAL NR ONE (13:57)
[2021-03-11] MEDS: MELATONIN 1 MG TABLET PO PRN (21:16)
[2021-03-11] MEDS: ACETAMINOPHEN 325 MG TABLET (FP) PO PRN (21:16)
[2021-03-12] MEDS: ONDANSETRON 4 MG/2 ML VIAL IVPUSH PRN (02:17)
[2021-03-12] MEDS: CEFTRIAXONE 2 GM in DEXTROSE 5%-WATER 2 GM/100 ML BAG IVPB SCH ×2 (04:57→17:12)
[2021-03-12] MEDS ORDERED: DEXTROSE 5%-WATER 100 ML IVPB ONE ×2 (05:36→17:08)
[2021-03-12] MEDS: metFORMIN HCL 500 MG TABLET (FP) PO SCH ×2 (06:15→17:12)
[2021-03-12] MEDS: HEPARIN NA (PORCINE) 5,000 UNITS/ML 1ML VIAL SQ SCH ×3 (06:15→21:36)
[2021-03-12] MEDS: INSULIN (LEVEMIR) 100 UNITS/ML UNITS SQ SCH (06:16)
[2021-03-12] MEDS: INSULIN SLIDING SCALE (NOVOLOG) 1 VIAL SQ SCH ×4 (06:17→21:37)
[2021-03-12 08:32] LABS: CALCIUM 8.6 mg/dL (8.5-10.1)
[2021-03-12 08:35] LABS: CREATININE 0.8 mg/dL (0.55-1.3)
[2021-03-12 08:36] LABS: BLOOD UREA NITROGEN 11.2 mg/dL (7-18)
[2021-03-12] MEDS: POLYETHYLENE GLYCOL (HEALTHYLAX) 3350 17 GM PACKET PO SCH (10:24)
[2021-03-12] MEDS: PANTOPRAZOLE SODIUM 40 MG VIAL IVPUSH SCH (10:24)
[2021-03-12] MEDS: FUROSEMIDE 40 MG/4 ML INJECTABLE VIAL IVPUSH SCH (10:24)
[2021-03-12] MEDS ORDERED: FUROSEMIDE 40 MG/4 ML INJECTABLE VIAL IVPUSH ONE (11:14)
[2021-03-12] MEDS ORDERED: PT OWN MED DRAWER 7, Y5N ONE (18:48)
[2021-03-12] MEDS: MELATONIN 1 MG TABLET PO PRN (21:39)
[2021-03-12] MEDS: ACETAMINOPHEN 325 MG TABLET (FP) PO PRN (21:43)
[2021-03-12] MEDS: guaiFENesin/D-METHORPHAN HB 10 ML UNIT-DOSE CUPS PO PRN (21:43)
[2021-03-13] MEDS ORDERED: DEXTROSE 5%-WATER 100 ML IVPB ONE ×2 (05:24→16:20)
[2021-03-13] MEDS: CEFTRIAXONE 2 GM in DEXTROSE 5%-WATER 2 GM/100 ML BAG IVPB SCH ×2 (05:28→16:25)
[2021-03-13] MEDS: HEPARIN NA (PORCINE) 5,000 UNITS/ML 1ML VIAL SQ SCH ×3 (05:29→21:22)
[2021-03-13] MEDS: guaiFENesin/D-METHORPHAN HB 10 ML UNIT-DOSE CUPS PO PRN ×3 (06:04→21:25)
[2021-03-13] MEDS: INSULIN (LEVEMIR) 100 UNITS/ML UNITS SQ SCH (06:04)
[2021-03-13] MEDS: INSULIN SLIDING SCALE (NOVOLOG) 1 VIAL SQ SCH ×4 (06:05→21:21)
[2021-03-13] MEDS: metFORMIN HCL 500 MG TABLET (FP) PO SCH ×2 (06:05→16:25)
[2021-03-13] MEDS: PANTOPRAZOLE SODIUM 40 MG VIAL IVPUSH SCH (10:18)
[2021-03-13] MEDS: FUROSEMIDE 40 MG/4 ML INJECTABLE VIAL IVPUSH SCH (10:18)
[2021-03-13] MEDS: POLYETHYLENE GLYCOL (HEALTHYLAX) 3350 17 GM PACKET PO SCH (10:19)
[2021-03-13] MEDS: ACETAMINOPHEN 325 MG TABLET (FP) PO PRN (21:24)
[2021-03-13] MEDS: MELATONIN 1 MG TABLET PO PRN (21:25)
[2021-03-14] MEDS ORDERED: DEXTROSE 5%-WATER 100 ML IVPB ONE ×2 (05:23→16:14)
[2021-03-14] MEDS: CEFTRIAXONE 2 GM in DEXTROSE 5%-WATER 2 GM/100 ML BAG IVPB SCH ×2 (05:27→16:25)
[2021-03-14] MEDS: HEPARIN NA (PORCINE) 5,000 UNITS/ML 1ML VIAL SQ SCH ×3 (05:28→21:04)
[2021-03-14] MEDS: metFORMIN HCL 500 MG TABLET (FP) PO SCH ×2 (06:16→16:26)
[2021-03-14] MEDS: INSULIN (LEVEMIR) 100 UNITS/ML UNITS SQ SCH (06:16)
[2021-03-14] MEDS: guaiFENesin/D-METHORPHAN HB 10 ML UNIT-DOSE CUPS PO PRN (06:18)
[2021-03-14] MEDS: INSULIN SLIDING SCALE (NOVOLOG) 1 VIAL SQ SCH ×4 (06:23→21:03)
[2021-03-14 08:48] LABS: CALCIUM 8.2 mg/dL (8.5-10.1)
[2021-03-14 08:50] LABS: ALBUMIN 1.9 g/dl (3.4-5.0); BLOOD UREA NITROGEN 12.2 mg/dL (7-18)
[2021-03-14 08:51] LABS: CREATININE 0.7 mg/dL (0.55-1.3)
[2021-03-14 08:53] LABS: BILIRUBIN,TOTAL 1.1 mg/dL (0.2-1); TOT PROT 6.9 g/dl (6.4-8.2)
[2021-03-14] MEDS: PANTOPRAZOLE SODIUM 40 MG VIAL IVPUSH SCH (09:42)
[2021-03-14] MEDS: POLYETHYLENE GLYCOL (HEALTHYLAX) 3350 17 GM PACKET PO SCH (09:42)
[2021-03-14] MEDS: FUROSEMIDE 40 MG/4 ML INJECTABLE VIAL IVPUSH SCH (09:42)
[2021-03-14] MEDS: guaiFENesin/CODEINE 10 ML UNIT-DOSE CUPS PO PRN ×2 (13:34→20:59)
[2021-03-14] MEDS: MELATONIN 1 MG TABLET PO PRN (21:01)
[2021-03-15] MEDS ORDERED: DEXTROSE 5%-WATER 100 ML IVPB ONE ×2 (04:31→16:57)
[2021-03-15] MEDS: CEFTRIAXONE 2 GM in DEXTROSE 5%-WATER 2 GM/100 ML BAG IVPB SCH ×2 (04:33→17:04)
[2021-03-15] MEDS: HEPARIN NA (PORCINE) 5,000 UNITS/ML 1ML VIAL SQ SCH ×3 (05:12→21:09)
[2021-03-15] MEDS: guaiFENesin/CODEINE 10 ML UNIT-DOSE CUPS PO PRN ×2 (05:13→21:09)
[2021-03-15] MEDS: metFORMIN HCL 500 MG TABLET (FP) PO SCH ×2 (06:20→17:05)
[2021-03-15] MEDS: INSULIN SLIDING SCALE (NOVOLOG) 1 VIAL SQ SCH ×4 (06:21→21:09)
[2021-03-15] MEDS: INSULIN (LEVEMIR) 100 UNITS/ML UNITS SQ SCH (06:22)
[2021-03-15] MEDS: FUROSEMIDE 40 MG/4 ML INJECTABLE VIAL IVPUSH SCH (10:10)
[2021-03-15] MEDS: PANTOPRAZOLE SODIUM 40 MG VIAL IVPUSH SCH (10:10)
[2021-03-15] MEDS: POLYETHYLENE GLYCOL (HEALTHYLAX) 3350 17 GM PACKET PO SCH (10:10)
[2021-03-15] MEDS: MELATONIN 1 MG TABLET PO PRN (21:09)
[2021-03-16] MEDS ORDERED: DEXTROSE 5%-WATER 100 ML IVPB ONE ×2 (03:50→17:00)
[2021-03-16] MEDS: CEFTRIAXONE 2 GM in DEXTROSE 5%-WATER 100 ML IVPB SCH ×2 (03:53→17:54)
[2021-03-16] MEDS: guaiFENesin/CODEINE 10 ML UNIT-DOSE CUPS PO PRN ×2 (03:53→21:26)
[2021-03-16] MEDS: INSULIN SLIDING SCALE (NOVOLOG) 1 VIAL SQ SCH ×4 (06:35→21:26)
[2021-03-16] MEDS: metFORMIN HCL 500 MG TABLET (FP) PO SCH ×2 (06:36→17:04)
[2021-03-16] MEDS: INSULIN (LEVEMIR) 100 UNITS/ML UNITS SQ SCH (06:36)
[2021-03-16] MEDS: HEPARIN NA (PORCINE) 5,000 UNITS/ML 1ML VIAL SQ SCH ×3 (06:36→21:25)
[2021-03-16 07:41] LABS: CALCIUM 8.4 mg/dL (8.5-10.1)
[2021-03-16 07:42] LABS: ALBUMIN 1.9 g/dl (3.4-5.0); BLOOD UREA NITROGEN 15.6 mg/dL (7-18)
[2021-03-16 07:45] LABS: CREATININE 0.7 mg/dL (0.55-1.3)
[2021-03-16 07:47] LABS: BILIRUBIN,TOTAL 0.2 mg/dL (0.2-1); TOT PROT 6.8 g/dl (6.4-8.2)
[2021-03-16] MEDS: FUROSEMIDE 40 MG TABLET (FP) PO SCH (09:37)
[2021-03-16] MEDS: PANTOPRAZOLE SODIUM 40 MG VIAL IVPUSH SCH (09:37)
[2021-03-16] MEDS: POLYETHYLENE GLYCOL (HEALTHYLAX) 3350 17 GM PACKET PO SCH (09:38)
[2021-03-16] MEDS: MELATONIN 1 MG TABLET PO PRN (21:26)
[2021-03-17] MEDS ORDERED: DEXTROSE 5%-WATER 100 ML IVPB ONE ×2 (05:01→15:23)
[2021-03-17] MEDS: CEFTRIAXONE 2 GM in DEXTROSE 5%-WATER 100 ML IVPB SCH ×2 (05:03→16:00)
[2021-03-17] MEDS: INSULIN SLIDING SCALE (NOVOLOG) 1 VIAL SQ SCH ×3 (06:11→16:00)
[2021-03-17] MEDS: INSULIN (LEVEMIR) 100 UNITS/ML UNITS SQ SCH (06:14)
[2021-03-17] MEDS: HEPARIN NA (PORCINE) 5,000 UNITS/ML 1ML VIAL SQ SCH ×2 (06:15→13:51)
[2021-03-17] MEDS: metFORMIN HCL 500 MG TABLET (FP) PO SCH ×2 (06:15→16:00)
[2021-03-17] MEDS: guaiFENesin/CODEINE 10 ML UNIT-DOSE CUPS PO PRN (06:24)
[2021-03-17] MEDS: FUROSEMIDE 40 MG TABLET (FP) PO SCH (09:17)
[2021-03-17] MEDS: POLYETHYLENE GLYCOL (HEALTHYLAX) 3350 17 GM PACKET PO SCH (09:17)
[2021-03-17] MEDS: PANTOPRAZOLE SODIUM 40 MG VIAL IVPUSH SCH (09:17)
[2021-03-17 13:54] VITALS: TEMP 98.4
[2021-03-17 18:25] VITALS: BP 124/65; PULSE 87
== END 2021-03-17 18:55 | disposition home or self-care (01) | DRG 871 ==
LOC: FER 12:32 → JICU 16:40 → J4S 03-02 19:11
PROVIDERS: ADMIT Family Medicine; ATTEND Family Medicine
PROC: 0W9B30Z Drainage of Left Pleural Cavity with Drainage Device, Percutaneous Approach (ICD-10-PCS; principal; 2021-03-01)
PROC: 3E0L3GC Introduction of Other Therapeutic Substance into Pleural Cavity, Percutaneous Approach (ICD-10-PCS; 2021-03-01)
DX: A41.89 Other specified sepsis (principal); E11.10 Type 2 diabetes mellitus with ketoacidosis without coma; J13 Pneumonia due to Streptococcus pneumoniae; J96.01 Acute respiratory failure with hypoxia; J86.9 Pyothorax without fistula; E87.1 Hypo-osmolality and hyponatremia; E87.2 Acidosis; I31.3 Pericardial effusion (noninflammatory); J90 Pleural effusion, not elsewhere classified; I48.0 Paroxysmal atrial fibrillation; E11.65 Type 2 diabetes mellitus with hyperglycemia; E78.5 Hyperlipidemia, unspecified; E87.70 Fluid overload, unspecified; I10 Essential (primary) hypertension
CPT/HCPCS: 36415; 36600; 71045-TC-FY; 71250-TC; 76604; 80048; 80053; 80076; 81003; 81015; 82010; 82550; 82803; 82962; 83036; 83605; 83615; 83735; 84100; 84439; 84443; 84484; 85025; 85610; 85730; 87040; 87070; 87075; 87086; 87205; 93005; 93010; 93306-TC; 93308; 94010; 97116-GP; 97162-GP; 99291; C9803; J1644; J2997; U0003; U0005